=== PATIENT | male | born 1955 | race African-American/Black ===

== ENCOUNTER 2024-04-06 16:22 | Emergency (ER) | payer MEDICARE ==
[~2024-04-06] VITALS: Ht 182.9 cm; Wt 90.0 kg
[2024-04-06 16:34] VITALS: TEMP 98.6; O2SAT 99
[2024-04-06] MEDS ORDERED: KETOROLAC 15MG/ML VIAL IV ONE (17:00)
[2024-04-06 18:28] LABS: BASOPHILS % 1.1 % (0.0-2.0); EOSINOPHILS % 3.6 % (0.0-5.0); HEMATOCRIT. 32.7 % (42.0-52.0); HEMOGLOBIN. 10.5 g/dL (14.0-18.0); LYMPHOCYTES % 17.9 % (20.0-50.0); MEAN CORPUSCULAR HEMOGLOBIN 28.8 pg (28.0-32.0); MEAN CORPUSCULAR HGB CONC 32.2 g/dL (31.0-37.0); MEAN CORPUSCULAR VOLUME 89.3 fL (80.0-94.0); MEAN PLATELET VOLUME 9.8 fl (7.4-10.4); MONOCYTES % 8.6 % (2.0-8.0); NEUTROPHILS % 68.8 % (40.0-76.0); PLATELET 222 x1000/uL (130-400); RED BLOOD CELL COUNT 3.66 mill/uL (4.7-6.1); RED CELL DISTRIBUTION WIDTH 14.3 % (11.6-14.6); WHITE BLOOD COUNT 5.8 x1000/uL (4.5-11.0)
[2024-04-06 18:33] LABS: CHLORIDE 109 mEq/L (98-107); POTASSIUM 3.1 mEq/L (3.5-5.1); SODIUM 144 mEq/L (136-145)
[2024-04-06 18:34] LABS: CARBON DIOXIDE 29 mEq/L (21-32)
[2024-04-06 18:35] LABS: CALCIUM 9.3 mg/dL (8.7-10.4)
[2024-04-06 18:39] LABS: CREATININE 1.1 mg/dL (0.6-1.3); GLUCOSE 80 mg/dL (70-105); PROTHROMBIN TIME 10.9 sec (9.6-11.0); UREA NITROGEN BLOOD 22 mg/dL (9-23)
[2024-04-06] MEDS ORDERED: KETO10TA2 MT (19:46)
[2024-04-06] MEDS ORDERED: CYCL10TA21 MT (19:46)
[2024-04-06 20:21] VITALS: BP 170/94; PULSE 64; RESP 18
[2024-04-06] MEDS: KETOROLAC 30MG/ML VIAL IM ONE (20:21)
== END 2024-04-06 20:19 | disposition home or self-care (01) ==
LOC: ER 16:22 → EDBEDREQ 17:27 → ER 20:19
DX: R10.32 Left lower quadrant pain (principal); I10 Essential (primary) hypertension; E11.9 Type 2 diabetes mellitus without complications; Z96.643 Presence of artificial hip joint, bilateral
CPT/HCPCS: 99284; 80048; 85025; 85610; 36415; 72170; 96372; J1885